=== PATIENT | female | born 1960 | race African-American/Black ===

== ENCOUNTER 2022-01-04 18:20 | Emergency (ER) | payer OTHER, SELFPAY ==
--- NOTE | ~2022-01-04 | XR_ITS ---
EXAM: XR wrist RT min 3V DATE: 01/04/2022 19:38 HISTORY: pain/injury . COMPARISON: None available. FINDINGS: Decreased mineralization. No fracture or dislocation. No lytic or blastic lesion. Scattere d degenerative changes. Ulnar positive variance with ulnar abutment. No erosion or periosteal change. Soft tissues within normal limits. IMPRESSION: No acute osseous finding in the right wrist. Reviewed, dictated and finalized at location K.
[2022-01-04 18:37] VITALS: BP 130/68; PULSE 82; RESP 16; TEMP 37; O2SAT 100
--- NOTE | 2022-01-04 20:27 | ED.UPPEXIN ---
HPI - Extremity Injury (Upper) General Chief Complaint: Extremity Injury, Upper <Kellee Izaguirre PA-C - Last Filed: 01/04/22 20:32> Stated Complaint: R HAND/WRIST INJURY <Kellee Izaguirre PA-C - Last Filed: 01/04/22 20:32> Time Seen by Provider: 01/04/22 20:19 <Kellee Izaguirre PA-C - Last Filed: 01/04/22 20:32> Source: patient <Kellee Izaguirre PA-C - Last Filed: 01/04/22 20:32> Mode of arrival: ambulatory <Kellee Izaguirre PA-C - Last Filed: 01/04/22 20:32> Limitations: no limitations <Kellee Izaguirre PA-C - Last Filed: 01/04/22 20:32> History of Present Illness HPI narrative: This is a 61-year-old female that presents to the emergency department after a right wrist injury sustained earlier today. Reports she dropped a monitor on the wrist earlier today. Reports some pain and swelling in the area. Denies decreased range of motion or numbness. <Kellee Izaguirre PA-C - Last Filed: 01/04/22 20:32> Related Data Allergies/Adverse Reactions: Allergies Allergy/AdvReac Type Severity Reaction Status Date / Time Sulfa (Sulfonamide Allergy Unknown Hives / Verified 09/23/17 03:09 Antibiotics) Red Face <Kellee Izaguirre PA-C - Last Filed: 01/04/22 20:32> Review of Systems Review of Systems: CONSTITUTIONAL: Denies fever MUSCULOSKELETAL: Reports joint pain, and myalgia. NEUROLOGIC: Denies numbness, or weakness. <Kellee Izaguirre PA-C - Last Filed: 01/04/22 20:32> All systems reviewed & are unremarkable except as noted in HPI and below <Kellee Izaguirre PA-C - Last Filed: 01/04/22 20:32> [facility] Past Medical History Medical History: Medical History (Updated 01/04/22 @ 20:31 by Kellee Izaguirre PA-C) History of hypertension <Kellee Izaguirre PA-C - Last Filed: 01/04/22 20:32> Social History Social History: Social History (Updated 01/04/22 @ 20:29 by Kellee Izaguirre PA-C) Substance use: never <Kellee Izaguirre PA-C - Last Filed: 01/04/22 20:32> Exam Narrative: GENERAL: Well-appearing, well-nourished, and in no acute distress. HEAD: Normocephalic, atraumatic. EYES: EOMI. EXTREMITIES: Normal range of motion. No edema or obvious deformity. Normal radial pulse. Normal sensation SKIN: Warm, dry, no rash. NEURO: No focal deficits. Alert and oriented x3. 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 Supervision For this patient encounter, I reviewed the TUBE SIZER AND CUTTER OPERATOR or PA documentation, treatment plan, and medical decision making <Anderson Osborne MD - Last Filed: 01/04/22 23:14> Vital Signs Vital signs: Vital Signs Temperature 98.6 F 01/04/22 18:37 Pulse Rate 82 01/04/22 18:37 Respiratory Rate 16 01/04/22 18:37 Blood Pressure 130/68 01/04/22 18:37 Pulse Oximetry 100 01/04/22 18:37 Oxygen Delivery Room Air 01/04/22 18:37 Temperature 98.6 F 01/04/22 18:37 Pulse Rate 82 01/04/22 18:37 Respiratory Rate 16 01/04/22 18:37 Blood Pressure 130/68 01/04/22 18:37 Pulse Oximetry 100 01/04/22 18:37 Oxygen Delivery Room Air 01/04/22 18:37 <Kellee Izaguirre PA-C - Last Filed: 01/04/22 20:32> Vital Signs Temperature 98.6 F 01/04/22 18:37 Pulse Rate 82 01/04/22 18:37 Respiratory Rate 16 01/04/22 18:37 Blood Pressure 130/68 01/04/22 18:37 Pulse Oximetry 100 01/04/22 18:37 Oxygen Delivery Room Air 01/04/22 18:37 Temperature 98.6 F 01/04/22 18:37 Pulse Rate 82 01/04/22 18:37 Respiratory Rate 16 01/04/22 18:37 Blood Pressure 130/68 01/04/22 18:37 Pulse Oximetry 100 01/04/22 18:37 Oxygen Delivery Room Air 01/04/22 18:37 <Anderson Osborne MD - Last Filed: 01/04/22 23:14> MDM - Extremity Injury (Upper) MDM Narrative Medical decision making narrative: Patient presents to the emergency department for right wrist pain after an injury earlier today. She is neurovascularly intact. Right wrist x
== END 2022-01-04 20:50 | disposition home or self-care (01) ==
PROVIDERS: Emergency Provider Emergency Medicine
DX: S69.91XA Unspecified injury of right wrist, hand and finger(s), initial encounter (principal); I10 Essential (primary) hypertension; W20.8XXA Other cause of strike by thrown, projected or falling object, initial encounter
CPT/HCPCS: 73110; 99283

== ENCOUNTER 2022-01-20 05:13 | Emergency (ER) | payer OTHER, SELFPAY ==
--- NOTE | ~2022-01-20 | XR_ITS ---
EXAMINATION: XR chest 1V portable DATE: 01/20/2022 06:06 INDICATION: Weakness TECHNIQUE: frontal view of the chest was obtained. COMPARISON: None FINDINGS: Mild right apical pleural-parenchymal scarring. The lungs are otherwise clear with no focal airspace opacities, pulmonary edema, pleural effusion or pneumothorax. The cardiomediastinal silhouette is nor mal. Visualized bones and soft tissues are unremarkable. IMPRESSION: 1. No acute cardiopulmonary disease. Reviewed, dictated and finalized at location A.
[2022-01-20 05:13] VITALS: BP 177/96; PULSE 123; RESP 18; O2SAT 98
--- NOTE | 2022-01-20 05:18 | ECG_ITS ---
Measurements Intervals [place] Rate: 118 P: 50 NC: 161 QRS: -21 QRSD: 101 T: 4 QT: 340 QTc: 477 Interpretive Statements SINUS TACHYCARDIA BORDERLINE ST-T WAVE ABNORMALITY- ANTEROLAT/INF LEADS ABNORMAL ECG Electronically Signed On 01-20-2022 7:56:56 CDT by Edson RIZO
--- NOTE | 2022-01-20 05:47 | ED.GENADULT ---
HPI - General Adult General Chief complaint: Dizziness Stated complaint: DIZZY Time Seen by Provider: 01/20/22 05:19 History of Present Illness HPI narrative: Patient is a 61-year-old female who presents with complaints. Patient reports she has history of hypertension got up this morning at work and was feeling lightheaded. Patient got to work she felt extremely lightheaded noticed that her blood pressure was elevated. Patient denies focal neurological deficits reports has been gradually improving and she is arrived department. Patient reports no chest pain no shortness of breath. Related Data Home Medications Medication Instructions Recorded Confirmed triamterene 37.5 tablet 01/20/22 mg-hydrochlorothiazide 25 mg tablet Allergies Allergy/AdvReac Type Severity Reaction Status Date / Time Sulfa (Sulfonamide Allergy Unknown Hives / Verified 09/23/17 03:09 Antibiotics) Red Face Review of Systems Review of Systems: A 10 system review of systems was completed on the patient and is negative except for what is stated in the HPI. Nursing and ancillary documentation was reviewed. [facility] Past Medical History Medical History History of hypertension Social History Social History Substance use: never Exam Narrative: GENERAL: Well-appearing, well-nourished, and in no acute distress. HEAD: Normocephalic, atraumatic. EYES: PERRLA and EOMI. ENT: Nares clear, no rhinorrhea or epistaxis. Mucous membranes moist. NECK: Supple. CHEST: Clear to auscultation. No respiratory distress. HEART: Regular rate and rhythm. No murmur heard. Normal peripheral pulses. ABDOMEN: Soft, nontender, nondistended, normal active bowel sounds. EXTREMITIES: Normal range of motion. No edema. SKIN: Warm, dry, no rash. NEURO: No focal deficits. Alert and oriented x3. PSYCH: Normal mood and affect. Course Course Emergency Course: EKG sinus tachycardia rate of [address] elevation Vital Signs Vital signs: Vital Signs Pulse Rate 123 H 01/20/22 05:13 Respiratory Rate 18 01/20/22 05:13 Blood Pressure 177/96 H 01/20/22 05:13 Pulse Oximetry 98 01/20/22 05:13 Oxygen Delivery Room Air 01/20/22 05:13 Pulse Rate 92 01/20/22 05:49 Respiratory Rate 16 01/20/22 05:49 Blood Pressure 148/76 H 01/20/22 05:49 Pulse Oximetry 94 01/20/22 05:49 Oxygen Delivery Room Air 01/20/22 05:13 Medical Decision Making Vital Signs Vital Signs: Vital Signs Pulse Rate 123 H 01/20/22 05:13 Respiratory Rate 18 01/20/22 05:13 Blood Pressure 177/96 H 01/20/22 05:13 Pulse Oximetry 98 01/20/22 05:13 Oxygen Delivery Room Air 01/20/22 05:13 Pulse Rate 92 01/20/22 05:49 Respiratory Rate 16 01/20/22 05:49 Blood Pressure 148/76 H 01/20/22 05:49 Pulse Oximetry 94 01/20/22 05:49 Oxygen Delivery Room Air 01/20/22 05:13 Lab Data Result diagrams: 01/20/22 05:58 01/20/22 05:58 Labs: Lab Results 01/20/22 01/20/22 01/20/22 Range/Units 05:58 05:58 05:58 WBC 9.1 (4.5-10.0) K/mm3 RBC 4.62 (4.2-5.4) M/mm3 Hgb 14.3 (12.0-15.0) g/dL Hct 42.7 (37.0-47.0) % MCV 92.4 (80-100) fl MCH 31.0 (26-34) pg MCHC 33.5 (32-36) g/dl RDW 13.4 (11.5-14.5) % Plt Count 283 (150-375) k/mm3 MPV 10.5 H (7.4-10.4) fl Immature Gran % (Auto) 0.2 (0-0.5) % Neut % (Auto) 44.3 L (45.5-73.1) % Lymph % (Auto) 46.7 H (18.3-44.2) % [place] % (Auto) 7.1 (2.6-8.5) % Eos % (Auto) 1.4 (0-4.4) % Baso % (Auto) 0.3 (0.2-1.2) % Lymph # (Auto) 4.25 H (0.9-3.2) K/mm3 [place] # (Auto) 0.7 H (0.1-0.6) K/mm3 Eos # (Auto) 0.1 (0-0.3) K/mm3 Baso # (Auto) 0.0 (0.0-0.1) K/mm3 Abs Immat Gran (auto) 0.02 (0.00-0.031) K/mm3 Absolute Neuts (auto) 4.0 (1.3-6.7) K/mm3 Absolute Nucleated
[2022-01-20 05:49] VITALS: BP 148/76; PULSE 92; RESP 16; O2SAT 94
[2022-01-20 06:17] LABS: Alanine Aminotransferase 15 U/L (6-35); Albumin Level 4.7 g/dL (3.5-5.1); Alkaline Phosphatase 68 U/L (38-126); Anion Gap 5 mmol/L (8-16); Aspartate Amino Transferase 27 U/L (14-36); Bilirubin,Total 0.5 mg/dL (0.2-1.3); Blood Urea Nitrogen 14 mg/dL (7-17); Calcium 9.1 mg/dL (8.4-10.2); Carbon Dioxide 30 mmol/L (22-30); Chloride 102 mmol/L (98-107); Estimated Glomerular Filt Rate > 60; Glucose 150 mg/dL (65-110); Potassium 2.9 mmol/L (3.4-5.0); Sodium 137 mmol/L (137-145)
[2022-01-20 06:26] LABS: Basophils Percent Auto 0.3 % (0.2-1.2); Eosinophils Absolute Auto 0.1 K/mm3 (0-0.3); Eosinophils Percent Auto 1.4 % (0-4.4); Hematocrit 42.7 % (37.0-47.0); Hemoglobin 14.3 g/dL (12.0-15.0); Immature Granulocyte Absolute 0.02 K/mm3 (0.00-0.031); Immature Granulocyte Percent A 0.2 % (0-0.5); Lymphocytes Absolute Auto 4.25 K/mm3 (0.9-3.2); Lymphocytes Percent Auto 46.7 % (18.3-44.2); Mean Corpuscular HGB Conc 33.5 g/dl (32-36); Mean Corpuscular Volume 92.4 fl (80-100); Mean Platelet Volume 10.5 fl (7.4-10.4); Monocytes Absolute Auto 0.7 K/mm3 (0.1-0.6); Monocytes Percent Auto 7.1 % (2.6-8.5); Neutrophils Percent Auto 44.3 % (45.5-73.1); Platelet Count Result 283 k/mm3 (150-375); Red Blood Count 4.62 M/mm3 (4.2-5.4); Red Cell Distribution Width 13.4 % (11.5-14.5); White Blood Count 9.1 K/mm3 (4.5-10.0)
[2022-01-20 06:28] LABS: NT Pro B Type Natriuretic Pept 27 pg/mL (5-100); Troponin I < 0.012 ng/mL (0.000-0.034)
[2022-01-20] MEDS: POTASSIUM CHLORIDE 20 MEQ PACKET (FOR LIQUID) 40 MEQ PO (06:31)
[2022-01-20 06:37] LABS: Appearance Urine Clear (Clear); Bilirubin Urine Negative (Negative); Blood Urine 1+ (Negative); Color Urine Yellow (Yellow); Glucose Urine UA Negative (Negative); Ketones Urine Negative (Negative); Leukocyte Esterase Ur Negative LEU/UL (Negative); Nitrate Urine Negative (Negative); Protein Urine Negative (Negative); Specific Grav Ur 1.015 (1.001-1.035); Urobilinogen Urine 0.2 mg/dL (<2.0)
[2022-01-20 06:51] LABS: Squamous Epithelial Cell Urine Rare /hpf (Few); WBC Urine 0-3 /hpf
[2022-01-20 07:01] VITALS: BP 149/82; PULSE 82; RESP 18; O2SAT 98
[2022-01-20 07:05] LABS: Add Urine Microscopic? YES
== END 2022-01-20 07:03 | disposition home or self-care (01) ==
PROVIDERS: Emergency Provider Emergency Medicine; PCP Nurse Practitioner Family
DX: R42 Dizziness and giddiness (principal); I10 Essential (primary) hypertension; E87.6 Hypokalemia; R00.0 Tachycardia, unspecified; R94.31 Abnormal electrocardiogram [ECG] [EKG]
CPT/HCPCS: 36415; 71045; 80053; 81001; 83605; 83735; 83880; 84484; 85025; 93005; 99284; A9270

== ENCOUNTER 2025-05-30 09:07 | Emergency (ER) | payer BC, SELFPAY ==
--- OUTSIDE RECORDS SUMMARY | 2009-11-07 18:00 | XMS_ITS | Continuity of Care Document ---
Author Organization [facility] Address [address] [place] [address] Phone Care Team Providers Care Electronics Instructor Name Role Phone Shanique Lee MD Unavailable Unavai lable Advance Directives Directive Yes / No Effective Date File Name No Information Encounters Encounter Description Practice Location Reason(s) For Visit Diagnoses Date Provider Providers Copied on Encounter [facility], [address], [place], [place], [id number], [place] tel:[phone] [facility] DEPRESSIVE DISORDER [facility]. [address], [address], [place], [place], [id number]. tel:[phone] Family History Family Member Type Diagnosis Age At Onset No Information Payers Payer name Insurance type Covered republican ID Authoriza tion(s) No Information Social History Type Description Quantity Date Captured Comments Sex Female Smoking Status No Information Chief Complaint And Reason For Visit No Information Reason For Referral Reason For Referral No Information History Of Present Illness Encounter Date Complaint History Of Prese nt Illness No Information Functional Status Date Functional Assessmen t No Information Instructions Date Instruction Additional Infor mation No Information Assessments Type Assessment Date No Information Patient Care Teams Name Effective Dates (start - stop) Status Members No Information
--- NOTE | ~2025-05-30 | CT_ITS ---
CT ABDOMEN AND PELVIS WITHOUT CONTRAST Clinical History: L flank pain Comparison: CT abdomen pelvis 12/22/2016 Technique: Unenhanced axial images lung bases to symphysis pubis Coronal, sagittal reformats CT images acquired with automatic exposure control for dose reduction DLP: 312 mGy-cm Findings: Without intravenous contrast, sensitivity for detecting visceral parenchymal abnormalities decreased. Lung bases: Tiny nodule lateral right lower lobe. Visualized heart and pericardium: Unremarkable. Liver: A few small cysts. Gallbladder: Unremarkable. Spleen: Unremarkable. Pancreas: Unremarkable. Adrenal glands: Unremarkable. Kidneys: Right kidney- No hydronephrosis. No renal stones. Left kidney- No hydronephrosis. No renal stones. Distal esophagus/stomach: Unremarkable. Small bowel loops: Normal caliber and wall thickness. Colon: Diverticula Normal caliber and wall thickness. Appendectomy. Nodes: No enlarged nodes. Peritoneum: No ascites. No free intraperitoneal air. Small focal mesenteric fat stranding centrally. Urinary bladder: Unremarkable. Uterus: Probable fibroid. Adnexa: No masses. Bones: No acute bony abnormality. Soft tissues: Unremarkable. Unopacified abdominal aorta: No aneurysmal dilatation. IMPRESSION: 1. Small focal central mesenteritis and/or panniculitis. 2. Otherwise no acute abnormality. 3. Additional findings as above. Reviewed, dictated and finalized at location [facility]. [facility]
[2025-05-30 09:12] VITALS: BP 164/81; PULSE 100; RESP 17; TEMP 36.9; O2SAT 100
--- OUTSIDE RECORDS SUMMARY | 2025-05-30 09:33 | XMS_ITS | Data Portability ---
Author Organization [place] - [facility] [employer], Main Office Address [address] [place] [address] Assessment No assessment recorded. Plan of Treatment Reminders Order Date Submit Date Provider Last Modified By Organization Details Last Modified Time Details Appointments None recorded. Lab TSH + free T4, serum [address] [place] [address] Outpatient Lab, [address] [place], [address], 5 08:19:39 T3, free, serum or plasma [address] [place] [address] Outpatient Lab, [address] [place], [address], 5 08:19:39 lipid panel, serum 2024 025 [facility] Outpatient Lab, [address] [place], [address], 5 15:38:08 CMP, serum or plasma 2024 025 [facility] Outpatient Lab, [address] [place], [address], 5 08:19:38 CBC w/ auto diff [address] [place] [address] Outpatient Lab, [address] [place], [address], 5 08:19:38 HbA1c (hemoglobin A1c), blood 2024 025 [facility] Outpatient Lab, [address] [place], [address], 5 08:19:38 lipid panel, serum [address] (Lab), [address] [place], [address], 3 13:55:42 noninvasive colorectal cancer DNA + occult blood screening, QL, stool 2022 023 [email or web address] [address], [place], [address], 3 10:35:13 CMP, serum or plasma [address] (Lab), [address] [place], [address], 3 13:54:53 HbA1c (hemoglobin A1c), blood [address] (Lab), [address] [place], [address], 3 13:55:14 Referral None recorded. Procedures None recorded. Surgeries None recorded. Imaging MAMMO, screening, digital, bilateral - Please call patient to schedule. [facility] 2024 025 [email or web address] [facility] ([facility]), [address] [place], [address], 5 16:36:30 MAMMO, screening, digital, bilateral - *Please call pt to schedule* 2022 023 [email or web address] 256 [facility], [address] [place] [address] , [place], [address], 3 08:59:36 Medication Orders cetirizine 10 mg tablet 2024 025 [facility], [address] [place], [address], 5 16:29:59 triamterene 37.5 mg-hydrochl orothiazide 25 mg tablet 2024 025 [facility], [address] [place], [address], 16:29:57 Patient TargetsNo targets recorded. Patient InstructionsNo instructions recorded. Reason for Referral None Reported. Results Created Date Observation Date Name Description Value Unit Range Abnormal Flag Note LastModifiedBy Organization Detail LastModifiedTime 06/05/20 23 06/05/2023 COLOG UARD cologuard result reportable NEGATI VE negati ve normal NEGAT DM TEST RESUL T. A negat dm Colog uard resul t indic ates a low likel ihood that a color ectal cance r (CRC) or advan deborah adeno ma (yolie omato us polyp s with more advan deborah pre-m align ant featu res) is prese nt. The chanc e that a perso n with a negat dm Colog uard test has a color ectal cance r is less than 1 in 1500 (nega tive predi ctive value >99.9 %) or has an advan deborah adeno ma is less than 5.3% (nega tive predi ctive value 94.7% ). These data are based on a prosp ectiv e cross -sect ional study of 10,00 0 indiv idual s at [place] risk for color ectal cance r who were scree devan with both Colog uard and colon oscop y. (Bernadine Tafoya et al, N Engl J Med 2014; 370(1 4):12 86-12 97) The bishop l value (refe rence range ) for this assay is negat dm. COLOG UARD RE-SC REENI NG RECOM MENDA TION: Perio dic color ectal cance r scree fer is an impor tant part of preve ntive healt hcare for asymp tomat ic indiv idual s at [facility] risk for color ectal cance r. Follo wing a negat dm Colog uard resul t, the Ameri can Cance r Socie ty and U.S. Multi -Soci ety Task Force scree fer guide lines recom mend a Colog uard re-sc isreal pollack inter margo of 3 years . Refer ences : Ameri can Cance r Socie ty Guide line for Color ectal Cance r Scree fer: https ://davina w.can cer.o rg/ca ncer/ colon -rect al-ca ncer/ detec tion- diagn osis- stagi ng/ac s-rec ommen datio ns.ht ml.; Jeancarlos ROSS, Vahid vanegas CR, Martin FortuneK, Color ectal Cance r Scree fer: Recom menda tions for Physi cians and Patie nts from the U.S. Multi -Soci ety Task Force on Color ectal Cance r Scree fer , Am Devika connell y 2017; 112:1 016-1 030. TEST DESCR IPTIO N: [place] site algor ithmi c brigitte sis of stool DNA-b ioadalgisa vee with hemog lobin immun oassa y. Quant itati ve value s of indiv idual bioma rkers are not repor table and are not assoc iated with indiv idual bioma rker resul t refer ence range s. Colog uard is inten ded for color ectal cance r scree fer of adult s of eithe r sex, 45 years or older , who are at [facility] for color ectal cance r (CRC) . Colog uard has been appro chirag for use by the U.S. FDA. The perfo rmanc e of Colog uard was estab lishe d in a cross secti onal study of [facility] adult s aged 50-84 . Colog uard perfo rmanc e in patie nts ages 45 to 49 years was estim ated by naren-g roup brigitte sis of near- age group s. Colon oscop ies perfo rmed for a posit dm resul t may find as the most clini balwinder signi fican t lesio n: color ectal cance r [4.0% ], advan deborah adeno ma (incl uding sessi le troy arsh polyp s great er than or equal to 1cm diame ter) [20%] or non- advan deborah adeno ma [31%] ; or no color ectal neopl leyla [45%] . These estim ates are deriv ed from a prosp ectiv e cross -sect ional rafael monroe study of 0 indiv idual s at [facility] risk for color ectal cance r who were scree devan with both Colog uard and colon oscop y. (Bernadine Tafoya et al, N Engl J Med 2014; 370(1 4):12 86-12 97.) Colog uard may produ ce a false negat dm or false posit dm resul t (no color ectal cance r or preca ncero us polyp prese nt at colon oscop y follo w up). A negat dm Colog uard test resul t does not guara ntee the absen ce of CRC or advan deborah adeno ma (pre- cance r). The curre nt Colog uard scree fer inter margo is every 3 years . (Amer ican Cance r Socie ty and U.S. Multi -Soci ety Task Force ). Colog uard perfo rmanc e data in a 0 patie nt pivot al study using colon oscop y as the refer ence metho d can be acces sed at the [facility] wing locat ion: www.e xactl abs.c om/re crow . Addit ional descr iptio n of the Colog uard test proce ss, warni ngs and preca ution s can be found at www.c eriogu dania.c om. Not Available [employer] [address], [place], [address], 06/12/2023 10:35:13 Result Notes None recorded. Problems Name Problem SNOMED Code Status Onset Date Resolution Date Notes Provider Name and Address Organization Details Recorded Time Hypertensiv e disorder 09697897 Active 2022 Patricia malhotra, SECY null, [place] [facility] [employer] [facility] [facility] 3 08:55:16 Nicotine dependence 04498721 Active 2022 HARRISON Burns [address], [address], [place], [address], [employer] [facility] [employer] 3 09:19:41 Essential hypertensio n 97512888 Active 2023 Love Barrera MD [address], [address], [place], [address], [employer] [facility] [employer] 4 13:20:57 Seasonal allergy 113284593 Active 2024 PAT Hill [address], [address], [place], [address], [employer] [facility] [employer] 5 16:23:35 Pain of left knee joint 1724234111531 07 Active 2024 PAT Hill [address] [facility], [address], [place], [address], [employer] [facility] [employer] 5 12:45:21 Problem Notes None recorded. Procedures Surgical History Date Name Laterality Status Provider Name and Address Organization Details Recorded Time removal of product of conception of ectopic completed Patricia Damon CMA [facility] [employer] [facility] 05/31/2023 08:59:39 Appendectomy completed Patricia Damon CMA [facility] [employer] 05/31/2023 08:59:47 Imaging Results None recorded. Procedure Notes None recorded. Medical Equipment None Reported. Allergies Allergen ID Allergen Name Allergen Category Reaction Reaction Severity Criticality Documentation Date Start Date Code Code System Note Provider Name and Address Organization Details Recorded Time 11122 Substance with sulfonami de structure and antibacte rial mechanism of action (substanc e) medicatio n hives Not available high 05/31/2023 82126 1497 [facility] [employer] 3 08:54:20 Medications Name Sig Start Date Stop Date Status Note LastModified by Organization Details LastModified Time cetirizine 10 mg tablet Take 1 tablet every day by oral route. 2024 active Not Available Not Available Not Avai lable acetaminophe n 300 mg-codeine 30 mg tablet TAKE 1 TO 2 TABLETS BY MOUTH EVERY 4 TO 6 HOURS NEEDED FOR PAIN. 05/31 completed Not Available Not Available Not Available triamterene 37.5 mg-hydrochlo rothiazide 25 mg tablet Take 1 tablet every day by oral route. 2024 active Not Available Not Available Not Avai lable amoxicillin 875 mg-potassium clavulanate 125 mg tablet TAKE 1 TABLET BY MOUTH EVERY 12 HOURS UNTIL GONE 05/31 completed Not Available Not Available Not Available Vitals Date Recorded Body height Body mass index (BMI) Body weight Body temperature Heart rate Oxygen saturation Pain severity - 0-10 verbal numeric rating [Score] - Reported Systolic And Diastolic Provider Name and Address Organization Details Last Updated DateTime 5 172.72 cm 28.9 kg/m2 42336.5 5 g 98.1 [degF] 74 /min 96 % 0 152/86 mm[Hg] Angela Rossi MA [facility] [employer] [facility] 5 16:14:02 Date Recorded Body height Body mass index (BMI) Body weight Body temperature Heart rate Oxygen saturation Systolic And Diastolic Provider Name and Address Organization Details Last Updated DateTime 3 172.72 cm 28.9 kg/m2 15478.5 5 g 96.3 [degF] 65 /min 98 % 122/76 mm[Hg] Patricia malhotra CMA [facility] [employer] 08:53:44 Social History Question Answer Notes LastModified by Organizat ion Details LastModified Time Tobacco Smoking Status Current Every Day Smoker Patricia Damon CMA [facility] [employer] [facility] 05/31/2023 08:58:52 What Is Your Level Of Caffeine Consumption? Heavy Information not available 09/13/2024 In The 14 Days Before Symptom Onset, Have You Had Close Contact With A Laboratory-confi rmed COVID-19 While That Case Was Ill? No Information not available 09/13/2024 In The 14 Days Before Symptom Onset, Have You Had Close Contact With A Person Who Is Under Investigation For COVID-19 While That Person Was Ill? No Information not available 09/13/2024 What Type Of Diet Are You Following? REGULAR [email or web address] Information not available 05/31/2023 Have There Been Any Changes To Your Family Or Social Situation? No Information not available 09/13/2024 Do You Use Insect Repellent Routinely? No Information not available 09/13/2024 Where Do You Live? SingleLevelHouse Information not available 09/13/2024 What Was The Date Of Your Most Recent Tobacco Screening? 09/13/2024 Information not available 09/13/2024 How Many Children Do You Have? 1 [email or web address] Information not available 05/31/2023 Do You Have Any Pets? No Information not available 09/13/2024 What Is Your Relationship Status? [email or web address] Information not available 05/31/2023 Do You Use Your Seat Belt Or Car Seat Routinely? Yes Information not available 09/13/2024 Do You Have Smoke And Carbon Monoxide Detectors In Your Home? Yes Information not available 09/13/2024 At What Age Did You Start Smoking Tobacco? 18 [email or web address] Information not available 05/31/2023 Are You Passively Exposed To Smoke? Yes Information not available 09/13/2024 Are There Any Smokers In Your House? Yes Information not available 09/13/2024 How Much Tobacco Do You Smoke? 0.25 PPD Information not available 05/31/2023 Do You Participate In Social Media? Yes Information not available 09/13/2024 Do You Use Sunscreen Routinely? No Information not available 09/13/2024 Have You Recently Traveled Abroad? No Information not available 09/13/2024 Are You Currently In School? No Information not available 09/13/2024 Do You Have Any Dietary Restrictions? No [email or web address] Information not available 05/31/2023 Sex: Female Functional Status Question Answer Note LastModified by Organizat ion Details LastModified Time Do you use any illicit or recreational drugs? No Information not available 09/13/2024 Do you or have you ever used any other forms of tobacco or nicotine? No Information not available 09/13/2024 What is your level of alcohol consumption? Moderate Information not available 09/13/2024 Are you currently employed? No Information not available 09/13/2024 What is your exercise level? Occasional [email or web address] Information not available 05/31/2023 Mental Status Question Answer Note LastModified by Organization D etails LastModified Time Do you feel stressed (tense, restless, nervous, or anxious, or unable to sleep at night)? [id number] Information not available 09/13/2024 Family History Relationship Description Onset Age of this Age Resolved Age Notes LastModified by Organization Details LastModified Time Sister Myocardial infarction [email or web address] Not available 1 07/31/2022 08:56:06 Mother Family history of malignant neoplasm cancer [email or web address] Not available 08:56:38 Medical History No medical history recorded. Gynecological History Statement/Question Response How many live births 1 Date of Last Colonoscopy Most Recent Bone Density Date of LMP Date of Last Pap Smear Current Control Method Menopause Most Recent Mammogram Obstetrics History GPAL:G 3 P 1 0 2 1 Type Value Multiple Births 0 Full Term 1 Induced 0 Spontaneous 1 Premature 0 Living 1 Ectopics 1 Total 3 Immunizations Vaccine Type Date Status Note Provider Nam e and Address Organization Details Recorded Time Influenza, split virus, trivalent, PF 09/13/2024 completed GARTH Hill-Tom [address] [facility] [address], [place], [address], [facility] [employer] 09/26/2024 22:48:27 Influenza, split virus, quadrivalent, PF 05/31/2023 completed Patricia Damon CMA null, [facility] [employer] 05/31/2023 10:37:08 Past Encounters Encounter ID Performer Location Encounter Start Date Encounter Closed Date Diagnosis/Indication Diagnosis SNOMED-CT Code Diagnosis ICD10 Code Diagnosis IMO Codes Diagnosis Note [id number] Love Barrera MD [facility] [place] [facility] [address] [facility] [address] [place] [address] 05/31/2023 08:33:36 05/31/2023 10:16:33 Hypertensive disorder 37984829 I10 Stable. Continue to monitor at home.Cheryl nue Triamteren e 37.5mg-HCT Z 25mg daily. Diabetes m ellitus screening 222479896 Z13.1 Hyperlipid emia screening 270766768 Z13.220 Screening mammography 24 900902 Z12.31 Nicotine dependence 5629 4008 F17.200 3-4 cigarettes per day for last 2 years.Enco uraged smoking cessation. Screening for malignant neoplasm of colon 069566669 Z12.11 No family hx of colon cancer Administra tion of influenza vaccine 14751026 Z23 [id number] PAT Hill [facility] Primary Care [facility] [address] [place] [address] 09/13/2024 15:51:02 09/13/2024 16:34:30 Adult health examination 938979559 Z00.00 Discussed medication compliance and routine follow up.Discuss ed healthy diet and routine exercise.Manpreet paziewed vaccine records and made recommenda tions as needed.Enc ouraged annual eye and dental exams, as well as twice yearly dental cleanings. Will check screening labs as listed below. Essential hypertension 90392917 I10 Seasonal allergy 0158640 04 J30.2 Screening for cardiovascular system disease 858716758 Z13.6 Diabetes m ellitus screening 287595503 Z13.1 Thyroid di sorder screening 058001008 Z13.29 Administra tion of influenza vaccine 80332948 Z23 Screening mammography 24 904346 Z12.31 Body mass index 25-29 - overweight 858771267 Z68.28 Weight: 190 poundsBMI: 28.9Discus sed healthy diet and routine exercise. [id number] PAT Hill [facility] Primary Care [facility] [address] [place] [address] 09/28/2024 10:47:35 09/28/2024 11:03:17 Health Concerns Section Related Observation LastModified by Organization Detai ls LastModified Time None Recorded Concern Status LastModified by Organization Details LastModified Time None Recorded Advance Directives Directive None Recorded Payers Insurance Date Sequence Insurance Name Policy Number Policy Oliva Covered Member ID Oliva Member ID Guarantor Name 09/28/2024 1 [facility] - DOS PRIOR TO 2025 (MEDICAID REPLACEMENT - HMO) [id number] Parul Dumont [id number] Parul Dumont Notes Date Note Type Note Provider Name and Address Organization Details Recorded Time 05/31/2023 text/html Pt. here to establish care.She has been diagnosed with HTN which has been stable for years.No major concerns or complaints. HARRISON Burns [address], [facility] [address], [place], [address], [employer] 05/31/2023 09:31:56 09/13/2024 text/html ROS as noted in the HPI Patient is a 63 year old female that presents to the office to establish care. Patient was previously seeing Sera Gonzalez, last appointment 05/2023. Patient reports she is doing well and has no concerns at this time. labs- orderedWWE- will scheduleMammogram- ordered placedColonoscopy- Cologuard 2022, due 06/2026Flu- orderedCovid- initial dosesTdap- UTD (due 2029)Shingles- declinesPneumonia- aware GARTH Hill-Tom [address], [place], [address], [employer] 09/26/2024 22:50:18 OBGyn Episode No OBEpisode recorded.
[2025-05-30 10:20] VITALS: BP 178/82; PULSE 66; RESP 16; O2SAT 99
[2025-05-30] MEDS: ACETAMINOPHEN 500 MG TABLET 1000 MG PO (11:16)
[2025-05-30 11:38] LABS: Hematocrit 40.5 % (37.0-47.0); Hemoglobin 13.8 g/dL (12.0-15.0); Immature Granulocyte Percent A 0.3 % (0-0.5); Lymphocytes Absolute Auto 1.66 K/mm3 (0.9-3.2); Mean Corpuscular HGB Conc 34.1 g/dl (32-36); Mean Corpuscular Hemoglobin 31.4 pg (26-34); Mean Corpuscular Volume 92.3 fl (80-100); Nucleated Red Blood Cells Absolute Auto 0.000 K/mm3 (0.0-0.012); Nucleated Red Blood Cells Perc 0.0 % (0.0-0.2); Platelet Count Result 236 k/mm3 (150-375); Red Blood Count 4.39 M/mm3 (4.2-5.4); White Blood Count 7.6 K/mm3 (4.5-10.0)
[2025-05-30 11:40] LABS: Add Urine Microscopic? NO; Appearance Urine Clear (Clear); Glucose Urine UA Negative (Negative); Leukocyte Esterase Ur Negative LEU/UL (Negative); Nitrate Urine Negative (Negative); Specific Grav Ur 1.014 (1.001-1.035)
--- NOTE | 2025-05-30 11:50 | ED_ITS ---
HPI - General Adult General Chief complaint: Back Pain/Injury Stated complaint: left lower back pain Time Seen by Provider: 05/30/25 10:21 History of Present Illness HPI narrative: 64-year-old female presenting with left flank pain that began this morning. Patient reports the pain is worse with movement. Denies abdominal pain, fevers/chills, urinary symptoms, nausea/vomiting/diarrhea, cough/recent illness, history of trauma, chest pain/shortness of breath. Related Data Home Medications ?Medication ?Instructions ?Recorded ?Confirmed ?Last Taken ?Type triamterene 37.5 tablet 01/20/22 Unknown His tory mg-hydrochlorothiazide 25 mg tablet Allergies Allergy/AdvReac Type Severity Reaction Status Date / Time Sulfa (Sulfonamide Allergy Unknown Hives / Verified 05/30/25 10:53 Antibiotics) Red Face PMFSH Past Medical History Medical History History of hypertension Social History Social History Substance use: never Exam 2 Narrative: GENERAL: Well-appearing, well-nourished, and in no acute distress. HEAD: Normocephalic, atraumatic. EYES: PERRLA and EOMI. ENT: Nares clear, no rhinorrhea or epistaxis. Mucous membranes moist. Oropharynx without tonsillar hypertrophy exudate or other lesions. Bilateral TMs pearly mccrary non-bulging NECK: Supple. No adenopathy or masses. No carotid bruits or JVD CHEST: Clear to auscultation. No respiratory distress. No wheezes rales or rhonchi HEART: Regular rate and rhythm. No murmur heard. Normal peripheral pulses. ABDOMEN: Soft, nontender, nondistended, normal active bowel sounds. BACK: Mild TTP of L flank and back. EXTREMITIES: Normal range of motion. No edema. SKIN: Warm, dry, no rash. NEURO: No focal deficits. Alert and oriented x3. PSYCH: Normal mood and affect Course Vital Signs Vital signs: Vital Signs Temperature 98.5 F 05/30/25 09:12 Pulse Rate 100 05/30/25 09:12 Respiratory Rate 17 05/30/25 09:12 Blood Pressure 164/81 H 05/30/25 09:12 Pulse Oximetry 100 05/30/25 09:12 Oxygen Delivery Room Air 05/30/25 09:12 Temperature 98.5 F 05/30/25 09:12 Pulse Rate 66 05/30/25 10:20 Respiratory Rate 16 05/30/25 10:20 Blood Pressure 178/82 H 05/30/25 10:20 Pulse Oximetry 99 05/30/25 10:20 Oxygen Delivery Room Air 05/30/25 09:12 Medical Decision Making MDM Narrative Medical decision making narrative: 64-year-old female presenting with left flank pain worse with movement beginning this morning. Denies abdominal pain, fevers/chills, urinary symptoms, nausea/vomiting/diarrhea, cough/recent illness, history of trauma, chest pain/shortness of breath. Upon my initial assessment, patient appears nontoxic with stable vital signs. Patient reported improvement of her pain after having taken Motrin prior to her arrival. Administered Tylenol which also improved the patient's pain. Imaging demonstrated small focal central mesenteritis and/or panniculitis, otherwise no acute abnormality. Low suspicion for this being the source of patient's symptoms. Labs WNL except mildly low potassium which replenished with PO 20 meq potassium chloride. Patient states she has been treated for hypokalemia before. Also discussed kidney function with patient who endorses that she will follow-up closely with her PCP. Other labs and UA WNL. Patient's symptoms likely due to a musculoskeletal etiology. Will send home with a muscle relaxer and recommendations for Tylenol and NSAIDs as needed for pain. Patient agrees with discussion and after shared medical decision making agrees with plan of care. All questions were answered to the patient's satisfaction. The patient is appropriate for outpatient treatment and follow-up. Medical Records Medical records reviewed: Yes I reviewed the external patient's medical records. Vital Signs Vital Signs: Vital Signs Temperature 98.5 F 05/30/25 09:12 Pulse Rate 100 05/30/25 09:12 Respiratory Rate 17 05/30/25 09:12 Blood Pressure 164/81 H 05/30/25 09:12 Pulse Oximetry 100 05/30/25 09:12 Oxygen Delivery Room Air 05/30/25 09:12 Temperature 98.5 F 05/30/25 09:12 Pulse Rate 66 05/30/25 10:20 Respiratory Rate 16 05/30/25 10:20 Blood Pressure 178/82 H 05/30/25 10:20 Pulse Oximetry 99 05/30/25 10:20 Oxygen Delivery Room Air 05/30/25 09:12 Lab Data Lab results reviewed: Yes I reviewed the patient's lab results. 05/30/25 11:28 05/30/25 11:28 Labs: Lab Results 05/30/25 05/30/25 Range/Units 10:55 11:28 WBC 7.6 (4.5-10.0) K/mm3 RBC 4.39 (4.2-5.4) M/mm3 Hgb 13.8 (12.0-15.0) g/dL Hct 40.5 (37.0-47.0) % MCV 92.3 (80-100) fl MCH 31.4 (26-34) pg MCHC 34.1 (32-36) g/dl RDW 13.2 (11.5-14.5) % Plt Count 236 (150-375) k/mm3 MPV 9.7 (7.4-10.4) fl Immature Gran % (Auto) 0.3 (0-0.5) % Neut % (Auto) 67.5 (45.5-73.1) % Lymph % (Auto) 21.9 (18.3-44.2) % [place] % (Auto) 7.9 (2.6-8.5) % Eos % (Auto) 2.0 (0-4.4) % Baso % (Auto) 0.4 (0.2-1.2) % Lymph # (Auto) 1.66 (0.9-3.2) K/mm3 [place] # (Auto) 0.6 (0.1-0.6) K/mm3 Eos # (Auto) 0.2 (0-0.3) K/mm3 Baso # (Auto) 0.0 (0.0-0.1) K/mm3 Abs Immat Gran (auto) 0.02 (0.00-0.031) K/mm3 Absolute Neuts (auto) 5.1 (1.3-6.7) K/mm3 Absolute Nucleated RBC 0.000 (0.0-0.012) K/mm3 Nucleated RBC % 0.0 (0.0-0.2) % Sodium 136 L (137-145) mmol/L Potassium 3.1 L (3.4-5.0) mmol/L Chloride 102 (98-107) mmol/L Carbon Dioxide 28 (22-30) mmol/L Anion Gap 6 (4-12) mmol/L BUN 14 (7-17) mg/dL Creatinine 1.13 H (0.7-1.0) mg/dL Estim Creat Clear Calc 45 ml/min Estimated GFR 48 L (59 - ) Glucose 86 (65-110) mg/dL Calcium 9.4 (8.4-10.2) mg/dL Total Bilirubin 0.7 (0.2-1.3) mg/dL AST 27 (14-36) U/L ALT 18 (6-35) U/L Alkaline Phosphatase 78 (38-126) U/L Total Protein 7.4 (6.3-8.2) g/dL Albumin 4.3 (3.5-5.1) g/dL Urine Color Yellow (Yellow) Urine Appearance Clear (Clear) Urine pH 7.5 (5.0-9.0) Ur Specific [place] 1.014 (1.001-1.035) Urine Protein Negative (Negative) mg/dL Urine Glucose (UA) Negative (Negative) mg/dL Urine Ketones Negative (Negative) mg/dL Ur Blood (Man) Negative (Negative) Urine Nitrate Negative (Negative) Urine Bilirubin Negative (Negative) Urine Urobilinogen 1.0 (<2.0) mg/dL Leukocyte Esterase Rfl Negative (Negative) DEEPTHI/UL Imaging Data Attestation: I personally reviewed and interpreted this imaging study as follows: Radiologist's impression: ITS Impressions Abdomen/Pelvis CT 05/30/25 11:24 IMPRESSION: 1. Small focal central mesenteritis and/or panniculitis. 2. Otherwise no acute abnormality. 3. Additional findings as above. Discharge Plan Discharge Clinical Impression: Muscle strain Patient Disposition: Home Condition: Stable Instructions: Back Pain (ED) Additional Instructions: Return to the emergency department if you experience fever, chest pain, shortness of breath, abdominal pain with nausea and vomiting, weakness, numbness/tingling, or any other symptoms that are concerning to you. Follow up with primary care doctor. Patient Language: Icelandic Prescriptions: No Action triamterene-hydrochlorothiazid 37.5-25 mg tablet triamterene-hydrochlorothiazid 37.5-25 mg tablet 1 tablet PO QAM 90 Days Qty: 90 0RF potassium chloride 20 mEq tablet extended release 20 meq PO DAILY Qty: 10 0RF Follow-up/Referrals: Santos,Savanna Benz NP [Primary Care Provider, Unknown]
[2025-05-30 11:51] LABS: Alanine Aminotransferase 18 U/L (6-35); Albumin Level 4.3 g/dL (3.5-5.1); Alkaline Phosphatase 78 U/L (38-126); Anion Gap 6 mmol/L (4-12); Aspartate Amino Transferase 27 U/L (14-36); Bilirubin,Total 0.7 mg/dL (0.2-1.3); Blood Urea Nitrogen 14 mg/dL (7-17); Calcium 9.4 mg/dL (8.4-10.2); Carbon Dioxide 28 mmol/L (22-30); Chloride 102 mmol/L (98-107); Estimated CRCL calculation 45 ml/min; Estimated Glomerular Filt Rate 48; Glucose 86 mg/dL (65-110); Potassium 3.1 mmol/L (3.4-5.0); Sodium 136 mmol/L (137-145); Total Protein 7.4 g/dL (6.3-8.2)
[2025-05-30] MEDS: POTASSIUM CHLORIDE 20 MEQ ER TABLET PO (12:22)
== END 2025-05-30 12:26 | disposition home or self-care (01) ==
PROVIDERS: PCP Nurse Practitioner Family
DX: S39.012A Strain of muscle, fascia and tendon of lower back, initial encounter (principal); I10 Essential (primary) hypertension; X58.XXXA Exposure to other specified factors, initial encounter
CPT/HCPCS: 36415; 74176; 80053; 81003; 85025; 99284; A9270